=== PATIENT | male | born 1965 | race Two or more races ===

== ENCOUNTER → 2023-11-09 08:17 | Outpatient (REF) | payer OTHER, SELFPAY ==
[2023-11-09 09:40] LABS: Glycohemoglobin (HgbA1c) 7.5 % (4.0-5.6)
[2023-11-09 09:44] LABS: Microalbumin, Random Urine 1.9 mg/dl (0.6-1.7)
[2023-11-09 10:23] LABS: ALT (SGPT) 30 U/L (0-50); AST (SGOT) 30 U/L (17-59); Albumin 4.2 g/dl (3.5-5.0); Alkaline Phosphatase 84 U/L (38-126); Blood Urea Nitrogen 20 mg/dl (9-20); Calcium 9.2 mg/dl (8.4-10.2); Carbon Dioxide 25 mmol/L (22-30); Chloride 103 mmol/L (98-107); Glucose 132 mg/dl (70-99); HDL Cholesterol 44 mg/dl; LDL Cholesterol, Calculated 68 mg/dl; Potassium 4.3 mmol/L (3.5-5.1); Sodium 139 mmol/L (135-145); Total Bilirubin 0.6 mg/dl (0.2-1.3); Total Cholesterol 137 mg/dl (50-199); Total Protein 7.6 g/dl (6.3-8.2); Triglyceride 128 mg/dl (10-149); Very Low Density Lipoprotein 25 mg/dl (0-30); eGFR > 60.00
== END ==
LOC: CLINIC 08:17
PROVIDERS: ATTENDING PHYSICIAN Nurse Practitioner Adult Health
DX: E11.9 Type 2 diabetes mellitus without complications (principal); E78.5 Hyperlipidemia, unspecified
CPT/HCPCS: 36415; 80053; 80061; 82043; 82570; 83036

== ENCOUNTER → 2024-03-30 08:36 | Outpatient (REF) | payer OTHER, SELFPAY ==
[2024-03-30 09:39] LABS: Glycohemoglobin (HgbA1c) 6.8 % (4.0-5.6)
[2024-03-30 09:58] LABS: Microalbumin, Random Urine 0.9 mg/dl (0.6-1.7); Microalbumin/creatinine Ratio 10.5 mg/g
[2024-03-30 10:00] LABS: ALT (SGPT) 29 U/L (0-50); AST (SGOT) 30 U/L (17-59); Albumin 4.4 g/dl (3.5-5.0); Alkaline Phosphatase 80 U/L (38-126); Blood Urea Nitrogen 18 mg/dl (9-20); Calcium 9.4 mg/dl (8.4-10.2); Carbon Dioxide 31 mmol/L (22-30); Chloride 101 mmol/L (98-107); Glucose 115 mg/dl (70-99); Potassium 4.3 mmol/L (3.5-5.1); Sodium 142 mmol/L (135-145); Total Bilirubin 0.8 mg/dl (0.2-1.3); Total Protein 7.9 g/dl (6.3-8.2); eGFR > 60.00
== END ==
LOC: REG 08:36
PROVIDERS: ATTENDING PHYSICIAN Nurse Practitioner Adult Health
DX: E11.9 Type 2 diabetes mellitus without complications (principal); R80.9 Proteinuria, unspecified
CPT/HCPCS: 36415; 80053; 82043; 82570; 83036

== ENCOUNTER → 2024-06-27 10:23 | Outpatient (REF) | payer OTHER, SELFPAY ==
[2024-06-27 13:37] LABS: ALT (SGPT) 32 U/L (0-50); AST (SGOT) 29 U/L (17-59); Albumin 4.5 g/dl (3.5-5.0); Alkaline Phosphatase 77 U/L (38-126); Blood Urea Nitrogen 13 mg/dl (9-20); Calcium 9.2 mg/dl (8.4-10.2); Carbon Dioxide 26 mmol/L (22-30); Chloride 102 mmol/L (98-107); Glucose 115 mg/dl (70-99); Potassium 4.3 mmol/L (3.5-5.1); Sodium 140 mmol/L (135-145); Total Bilirubin 0.6 mg/dl (0.2-1.3); Total Protein 8.1 g/dl (6.3-8.2); eGFR > 60.00
[2024-06-27 14:49] LABS: Glycohemoglobin (HgbA1c) 7.5 % (4.0-5.6)
== END ==
LOC: REG 10:23
PROVIDERS: ATTENDING PHYSICIAN Nurse Practitioner Adult Health
DX: E11.9 Type 2 diabetes mellitus without complications (principal)
CPT/HCPCS: 36415; 80053; 83036

== ENCOUNTER → 2024-10-12 09:25 | Outpatient (REF) | payer OTHER, SELFPAY ==
[2024-10-12 10:58] LABS: Microalbumin/creatinine Ratio 15.7 mg/g
[2024-10-12 11:40] LABS: Glycohemoglobin (HgbA1c) 7.8 % (4.0-5.6)
[2024-10-12 11:54] LABS: ALT (SGPT) 39 U/L (0-50); AST (SGOT) 29 U/L (17-59); Albumin 4.4 g/dl (3.5-5.0); Alkaline Phosphatase 109 U/L (38-126); Blood Urea Nitrogen 17 mg/dl (9-20); Calcium 9.3 mg/dl (8.4-10.2); Carbon Dioxide 23 mmol/L (22-30); Chloride 100 mmol/L (98-107); Glucose 133 mg/dl (70-99); HDL Cholesterol 41 mg/dl; LDL Cholesterol, Calculated 82 mg/dl; Potassium 4.1 mmol/L (3.5-5.1); Sodium 137 mmol/L (135-145); Total Bilirubin 0.6 mg/dl (0.2-1.3); Total Cholesterol 162 mg/dl (50-199); Total Protein 7.7 g/dl (6.3-8.2); Triglyceride 197 mg/dl (10-149); Very Low Density Lipoprotein 39 mg/dl (0-30); eGFR > 60.00
== END ==
LOC: REG 09:25
PROVIDERS: ATTENDING PHYSICIAN Nurse Practitioner Adult Health
DX: E11.9 Type 2 diabetes mellitus without complications (principal); E78.5 Hyperlipidemia, unspecified; R80.9 Proteinuria, unspecified
CPT/HCPCS: 36415; 80053; 80061; 82043; 82570; 83036

== ENCOUNTER → 2025-01-16 08:46 | Outpatient (REF) | payer OTHER, SELFPAY ==
[2025-01-16 09:52] LABS: Glycohemoglobin (HgbA1c) 7.8 % (4.0-5.6)
[2025-01-16 10:51] LABS: ALT (SGPT) 37 U/L (0-50); AST (SGOT) 28 U/L (17-59); Albumin 4.3 g/dl (3.5-5.0); Alkaline Phosphatase 83 U/L (38-126); Blood Urea Nitrogen 15 mg/dl (9-20); Calcium 9.2 mg/dl (8.4-10.2); Carbon Dioxide 27 mmol/L (22-30); Chloride 107 mmol/L (98-107); Glucose 134 mg/dl (70-99); Potassium 4.5 mmol/L (3.5-5.1); Sodium 141 mmol/L (135-145); Total Bilirubin 0.6 mg/dl (0.2-1.3); Total Protein 7.9 g/dl (6.3-8.2); eGFR > 60.00
== END ==
LOC: REG 08:46
PROVIDERS: ATTENDING PHYSICIAN Nurse Practitioner Adult Health
DX: E11.9 Type 2 diabetes mellitus without complications (principal)
CPT/HCPCS: 36415; 80053; 83036

== ENCOUNTER → 2025-05-17 10:09 | Outpatient (REF) | payer OTHER, SELFPAY ==
[2025-05-17 11:33] LABS: Glycohemoglobin (HgbA1c) 8.3 % (4.0-5.6)
[2025-05-17 13:46] LABS: ALT (SGPT) 39 U/L (0-50); AST (SGOT) 30 U/L (17-59); Albumin 4.2 g/dl (3.5-5.0); Alkaline Phosphatase 82 U/L (38-126); Blood Urea Nitrogen 12 mg/dl (9-20); Calcium 9.0 mg/dl (8.4-10.2); Carbon Dioxide 29 mmol/L (22-30); Chloride 105 mmol/L (98-107); Glucose 182 mg/dl (70-99); Potassium 4.4 mmol/L (3.5-5.1); Sodium 140 mmol/L (135-145); Total Protein 7.8 g/dl (6.3-8.2); eGFR > 60.00
== END ==
LOC: CLINIC 10:09
PROVIDERS: ATTENDING PHYSICIAN Nurse Practitioner Adult Health
DX: E11.9 Type 2 diabetes mellitus without complications (principal)
CPT/HCPCS: 36415; 80053; 83036

== ENCOUNTER → 2025-05-24 12:11 | Outpatient (REF) | payer OTHER, SELFPAY | LOC: CLINIC 12:11 | PROVIDERS: ATTENDING PHYSICIAN Nurse Practitioner Adult Health | DX: M25.561 Pain in right knee (principal) | CPT/HCPCS: 73564; 73565 ==